=== PATIENT | female | born 1955 | race Native Hawaiian/Other Pacific Islander ===

== ENCOUNTER 2024-09-29 17:19 | Emergency (ER) | payer MEDICARE, MEDICAID, SELFPAY ==
[2024-09-29] VITALS (9 sets, daily range): BP systolic 176–222; BP diastolic 87–117; PULSE 99–111; RESP 16–24; TEMP 36.4; O2SAT 95–99; BMI 21.6
--- NOTE | 2024-09-29 17:35 | EKG_ITS ---
[address] [id number] [address] [place] [address] Test Date: 2024-09-29 Pat Name: Bj Zafar Department: [facility] Room: Gender: Female Surveillance Technician: NICOLETTE : 1954-11-03 Requested By: Order Number: [id number] Reading MD: Kermit Rausch Measurements Intervals [place] Rate: 112 P: -2 AR: 168 QRS: 1 QRSD: 76 T: 27 QT: 328 QTc: 447 Interpretive Statements Sinus tachycardia with premature atrial complexes Electronically Signed On 09-29-2024 19:01:43 PDT by Kermit Rausch
--- NOTE | 2024-09-29 17:35 | DI.RAD.S_ITS ---
PROCEDURE: XR CHEST 1V INDICATIONS: Chest Pain TECHNIQUE: One view of the chest was acquired. COMPARISON: None. FINDINGS: Surgical changes and devices: None. Lungs and pleura: Patchy bibasilar opacities. No dense consolidations. No pleural effusions or pneumothorax. Mediastinum: Mediastinal contours appear normal. Heart size is normal. Bones and chest wall: No suspicious bony lesions. Overlying soft tissues appear unremarkable. IMPRESSION: Mild patchy the bibasilar opacities without dense consolidations. Findings may represent atelectasis although early developing airspace disease may have a similar appearance. Dictated by: Jorge Allison M.D. on 09/29/2024 at 18:30 Approved by: Jorge Allison M.D. on 09/29/2024 at 18:33
[2024-09-29 18:06] LABS: INR 1.1 (0.9-1.3); Prothrombin Time 12.8 SECONDS (9.4-12.5)
[2024-09-29 18:09] LABS: PTT Partial Thromboplastin Tim 37 SECONDS (25.1-36.5)
[2024-09-29 18:11] LABS: Alanine Aminotransferase 15 IU/L (<35); Albumin 4.4 g/dL (3.5-5.0); Albumin Globulin Ratio 0.9 (1.0-2.8); Alkaline Phosphatase 114 U/L (38-126); Aspartate Aminotransferase 24 IU/L (14-36); BUN Creatinine Ratio 16.1 (6-22); Bilirubin Total 0.6 mg/dL (0.2-1.3); Blood Urea Nitrogen 22 mg/dL (7-17); Calcium 9.2 mg/dL (8.4-10.2); Carbon Dioxide 18 mmol/L (22-32); Chloride 104 mmol/L (98-107); Creatine Kinase 146 U/L (30-135); Estimated Glomerular Filt Rate 42 mL/min (>60); Globulin 4.7 g/dL (1.7-4.1); Glucose 128 mg/dL (70-99); HEMOLYSIS < 15 (0-50); Lipase 229 U/L (23-300); Magnesium 1.3 mg/dL (1.6-2.3); Potassium 4.1 mmol/L (3.4-5.1); Sodium 135 mmol/L (137-145); Total Protein 9.1 g/dL (6.3-8.2)
[2024-09-29 18:13] LABS: Add Manual Diff / Slide Review NO; Basophils Absolute Auto 100 /uL (0-100); Basophils Percent Auto 0.8 % (0-2); Eosinophils Absolute Auto 800 /uL (0-450); Eosinophils Percent Auto 6.4 % (2-4); Hematocrit 31.4 % (36-46); Hemoglobin 10.2 g/dL (12.0-16.0); Lymphocytes Absolute Auto 2000 /uL (1100-4500); Lymphocytes Percent Auto 16.2 % (25-40); Mean Corpuscular HGB Conc 32.5 % (30-36); Mean Corpuscular Hemoglobin 25.1 PG (26-34); Mean Corpuscular Volume 77.3 fL (80-100); Monocytes Absolute Auto 800 /uL (0-900); Monocytes Percent Auto 6.9 % (3-14); Neutrophils Absolute Auto 8400 /uL (1500-7000); Neutrophils Percent Auto 69.7 % (50-75); Platelet Count 437 X10^3/uL (150-400); Red Blood Cell Count 4.06 X10^6/uL (4.0-5.2); Red Cell Distribution Width 14.7 % (11.6-14.8); White Blood Cell Count 12.1 X10^3/uL (4.5-11.0)
[2024-09-29 18:23] LABS: NT-proBNP (BNP-Adult 18+) 188 pg/mL (<125); Troponin I < 0.012 ng/mL (0.01-0.034)
[2024-09-29 21:44] LABS: Troponin I < 0.012 ng/mL (0.01-0.034)
--- NOTE | 2024-09-29 21:59 | ED.GENADULT ---
HPI - General Adult General Chief complaint: Hypertension Stated complaint: back pain 4days Time Seen by Provider: 09/29/24 21:51 Source: patient, RN notes reviewed and old records reviewed Mode of arrival: Family Vehicle Limitations: no limitations History of Present Illness HPI narrative: 69-year-old history of diabetes presents with complaint of back pain that is more upper thoracic on the right little bit worse with movement. Patient denies any trauma or injuries. Started 2 days ago has been persistent. Patient notes maybe walking around makes it a little bit worse. No fevers, has a little bit of a cough, no cold or congestion symptoms. No shortness of breath. No anterior chest pain. No rash or skin changes noted. No midline pain no lower back pain. No numbness tingling or weakness down in extremities. Patient notes no new fecal incontinence. Occasionally has some urinary incontinence but states that is not new. Patient denies any abdominal pain. No difficulty with ambulation. She was tried acetaminophen at home with minimal improvement. Family indicates she takes medication for diabetes. She denies any prior surgeries. No known drug allergies. No tobacco, alcohol or recreational drugs. Patient speaks some [place] but grandson is also helping to interpret. Offered bessemer bottom maker line but they deferred. Related Data Previous Rx's ?Medication ?Instructions ?Recorded amoxicillin 875 mg-potassium 1 tab PO BID #20 tabs 09/29/24 clavulanate 125 mg tablet hydrocodone 5 mg-acetaminophen 325 1 tab PO Q6H PRN pain #10 tabs 09/29/24 mg tablet Allergies Allergy/AdvReac Type Severity Reaction Status Date / Time No Known Drug Allergies Allergy Verified 09/29/24 17:30 Review of Systems Review of Systems ROS Unobtainable: All systems reviewed & are unremarkable except as noted in HPI and below Exam Narrative Exam Narrative: GENERAL: Alert and oriented x three, female in mild distress HEENT: Head normocephalic, atraumatic, EOMI, pupils reactive, face symmetric, moist mucous membranes NECK: Supple, full range of motion CARDIOVASCULAR: Regular rate and rhythm without murmurs, rubs or gallops. RESPIRATORY: Breath sounds equal bilaterally, no wheezes rales or rhonchi. ABDOMEN: Soft, nontender. Normoactive bowel sounds all 4 quadrants. No guarding or rebound, rigidity, no mass : No CVA tenderness BACK: No cervical, thoracic or lumbar vertebral point tenderness. Patient has mildly decreased range of motion. Muscle strength is 5/5 in upper and lower extremities, 2+ pulses bilateral upper and lower extremities. Normal range of motion of bilateral upper and lower extremities. No swelling bilateral lower extremities. 2+ radial pulses bilaterally. EXTREMITIES: Normal range of motion, no clubbing or edema. Neurovascularly intact. NEUROLOGICAL: Cranial nerves II through XII grossly intact. Moving all extremities SKIN: Warm, dry, no petechiae, no rashes or lesions. Initial Vital Signs Initial Vital Signs: Vital Signs Temperature 97.6 F 09/29/24 17:29 Pulse Rate 109 H 09/29/24 17:29 Respiratory Rate 16 09/29/24 17:29 Blood Pressure 211/101 H 09/29/24 17:29 Pulse Oximetry 95 09/29/24 17:29 Oxygen Delivery Method Room Air 09/29/24 17:29 Course Orders Ordered: Discontinued Medications Hydrocodone Bitart/Acetaminophen (Hydrocodone/Acet 5/325 Tablet) 1 tab PO NOW ONE Stop: 09/29/24 22:16 Last Admin: 09/29/24 22:24 Dose: 1 tab Documented By: Amoxicillin/Clavulanate Potassium (Amoxicillin/Clav 875/125 Mg) 1 tab PO NOW ONE Stop: 09/29/24 22:16 Last Admin: 09/29/24 22:24 Dose: 1 tab Documented By: Aspirin (Aspirin 81 Mg Chew Tab) 324 mg PO NOW ONE Stop: 09/29/24 17:36 Last Admin: 09/29/24 21:51 Dose: Not Given Documented By: FORREST Vital Signs Vital signs: Vital Signs - 8 hr 09/29/24 17:29 09/29/24 20:52 09/29/24 20:52 Temperature 97.6 F Pulse Rate 109 H 111 H Respiratory Rate 16 Blood Pressure 211/101 H 222/117 H Pulse Oximetry 95 98 Oxygen Delivery Method Room Air 09/29/24 21:00 09/29/24 21:01 09/29/24 21:01 Temperature Pulse Rate 103 H 108 H Respiratory Rate 21 23 Blood Pressure 190/117 H Pulse Oximetry 99 99 Oxygen Delivery Method Medical Decision Making Lab Data 09/29/24 17:49 09/29/24 17:49 Labs: Lab Results 09/29/24 09/29/24 Range/Units 17:49 21:14 WBC 12.1 H (4.5-11.0) X10^3/uL RBC 4.06 (4.0-5.2) X10^6/uL Hgb 10.2 L (12.0-16.0) g/dL Hct 31.4 L (36-46) % MCV 77.3 L (80-100) fL MCH 25.1 L (26-34) PG MCHC 32.5 (30-36) % RDW 14.7 (11.6-14.8) % Plt Count 437 H (150-400) X10^3/uL Neut % (Auto) 69.7 (50-75) % Lymph % (Auto) 16.2 L (25-40) % [place] % (Auto) 6.9 (3-14) % Eos % (Auto) 6.4 H (2-4) % Baso % (Auto) 0.8 (0-2) % Neut # (Auto) 8400 H (1275-5885) /uL Lymph # (Auto) 2000 (1627-3358) /uL [place] # (Auto) 800 (0-900) /uL Eos # (Auto) 800 H (0-450) /uL Baso # (Auto) 100 (0-100) /uL PT 12.8 H (9.4-12.5) SECONDS INR 1.1 (0.9-1.3) APTT 37 H (25.1-36.5) SECONDS Sodium 135 L (137-145) mmol/L Potassium 4.1 (3.4-5.1) mmol/L Chloride 104 (98-107) mmol/L Carbon Dioxide 18 L (22-32) mmol/L BUN 22 H (7-17) mg/dL Creatinine 1.37 H (0.52-1.04) mg/dL Estimated GFR 42 L (>60) mL/min BUN/Creatinine Ratio 16.1 (6-22) Glucose 128 H (70-99) mg/dL Calcium 9.2 (8.4-10.2) mg/dL Magnesium 1.3 L (1.6-2.3) mg/dL Total Bilirubin 0.6 (0.2-1.3) mg/dL AST 24 (14-36) IU/L ALT 15 (<35) IU/L Alkaline Phosphatase 114 (38-126) U/L Total Creatine Kinase 146 H (30-135) U/L Troponin I < 0.012 < 0.012 (0.01-0.034) ng/mL NT-Pro-B Natriuret Pep 188 H (<125) pg/mL Total Protein 9.1 H (6.3-8.2) g/dL Albumin 4.4 (3.5-5.0) g/dL Globulin 4.7 H (1.7-4.1) g/dL Albumin/Globulin Ratio 0.9 L (1.0-2.8) Lipase 229 (23-300) U/L ECG Data Attestation: I personally reviewed and interpreted this ECG as follows: Interpretation: Sinus tachycardia premature atrial complexes rate of 112 QRS of 160 8q RS is 76 QTC of 328. MDM Narrative Medical decision making narrative: EKG sinus tach rate of 112 Labs show white count of 12 hemoglobin of 10 platelets of 437. INR 1.1 PTT is 37. Creatinine of 1.37, sodium of 135 potassium of 4.1 chloride of 104 CO2 18 BUN 22 glucose of 128 Mag is 1.3 troponins less than 0.012 with a repeat of less than 0.012 and a BNP of 188. Chest x-ray bowel patchy bibasilar opacities without dense consolidations could represent atelectasis versus early developing airspace disease with similar appearance. Patient's workup shows possible developing pneumonia, patient has not has a lot of symptoms but does have some right-sided chest discomfort more thoracic not anterior. Cardiac workup is negative pain has been persistent making my suspicion for cardiac source low. She was no acute EKG changes. It was worse somewhat with movement. She has tried Tylenol with minimal improvement. We will go ahead and cover with a an oral antibiotic, short course of pain medication with return precautions. Discharge Plan Departure Patient Disposition: Home Clinical Impression: Back pain, thoracic, Pneumonia Instructions: DI for Thoracic Back Pain Activity Restrictions/Additional Instructions: Your workup today shows a possible developing pneumonia, this may or may not be the source of your symptoms you do not appear to have a lot of infectious symptoms. Shingles is also a possibility if you noticed a rash with small red bumps or blisters over the area of pain follow up for evaluation. Take oral antibiotics until completed. You can continue to take acetaminophen up to a 1000 mg every 6 hours and/or ibuprofen up to 600 mg every 6 hours. If inadequate for pain you can take [place] 1 or 2 tablets every 6 hours instead of acetaminophen. This medication can make you sleepy do not drive, perform hazardous activities or make any major decisions while taking it. This medication will make you constipated please take a stool softener once to twice daily until stools are soft and regular. Prescription sent to [facility] in [place]. Return for fevers, rapidly worsening symptoms, new chest pain or shortness of breath, persistent vomiting, new numbness tingling or weakness or other new or concerning changes. Prescriptions: New amoxicillin-pot clavulanate 875-125 mg tablet 1 tab PO BID Qty: 20 0RF hydrocodone-acetaminophen 5-325 mg tablet 1 tab PO Q6H PRN (Reason: pain) Qty: 10 0RF Stand Alone Forms: Patient Portal/API
[2024-09-29] MEDS: HYDROCODONE/ACET 5/325 TABLET 1 TAB PO (22:24)
[2024-09-29] MEDS: AMOXICILLIN/CLAV 875/125 MG 1 TAB PO (22:24)
== END 2024-09-29 23:00 | disposition home or self-care (01) ==
PROVIDERS: Emergency Medicine; Emergency Provider Emergency Medicine
DX: M54.6 Pain in thoracic spine (principal); J18.9 Pneumonia, unspecified organism; I10 Essential (primary) hypertension
CPT/HCPCS: 36415; 71045; 80053; 82550; 83690; 83735; 83880; 84484; 85025; 85610; 85730; 93005; 99284

== ENCOUNTER 2024-10-03 12:58 | Emergency (ER) | payer MEDICARE, MEDICAID, SELFPAY ==
[2024-10-03] VITALS (15 sets, daily range): BP systolic 135–182; BP diastolic 63–96; PULSE 86–109; RESP 18; TEMP 36.9; O2SAT 97–100; BMI 31.8
--- NOTE | 2024-10-03 14:32 | DI.RAD.S_ITS ---
PROCEDURE: XR KNEE RT 3V INDICATIONS: knee swelling, pain TECHNIQUE: 3 views of the knee were acquired. COMPARISON: None. FINDINGS: Bones: No fractures or dislocations. No suspicious bony lesions. Tricompartmental joint space narrowing with associated osteophytosis. Soft tissues: Massive joint effusion. No suspicious soft tissue calcifications. IMPRESSION: No acute bony abnormality. Large joint effusion. Internal derangement not excluded. Dictated by: Willem Mojica M.D. on 10/03/2024 at 14:49 Approved by: Willem Mojica M.D. on 10/03/2024 at 14:49
[2024-10-03 14:55] LABS: Add Manual Diff / Slide Review NO; Basophils Absolute Auto 200 /uL (0-100); Basophils Percent Auto 1.4 % (0-2); Eosinophils Absolute Auto 800 /uL (0-450); Eosinophils Percent Auto 7.7 % (2-4); Hematocrit 28.5 % (36-46); Hemoglobin 9.6 g/dL (12.0-16.0); Lymphocytes Absolute Auto 1200 /uL (1100-4500); Lymphocytes Percent Auto 11.2 % (25-40); Mean Corpuscular HGB Conc 33.7 % (30-36); Mean Corpuscular Hemoglobin 25.5 PG (26-34); Mean Corpuscular Volume 75.8 fL (80-100); Monocytes Absolute Auto 700 /uL (0-900); Monocytes Percent Auto 6.4 % (3-14); Neutrophils Absolute Auto 8100 /uL (1500-7000); Neutrophils Percent Auto 73.3 % (50-75); Platelet Count 512 X10^3/uL (150-400); Red Blood Cell Count 3.76 X10^6/uL (4.0-5.2); Red Cell Distribution Width 15.2 % (11.6-14.8)
[2024-10-03] MEDS: MORPHINE 4 MG/ML INJ IV (14:56)
--- NOTE | 2024-10-03 15:01 | ED.EXTPRO ---
HPI - Extremity Problem <Yoni Akers PA-C - Last Filed: 10/03/24 16:16> General Chief complaint: Extremity Problem,Nontraumatic Stated complaint: Swollen right knee x 3days Time Seen by Provider: 10/03/24 13:14 Source: patient Mode of arrival: Ambulatory History of Present Illness HPI Narrative: 69-year-old female with past medical history diabetes, hypertension, gout presents to the ED with 3 days of right-sided knee pain and swelling. Patient describes the symptoms as spontaneous onset, no recent trauma or injury. Patient endorses having been diagnosed with gout about 2 years ago. Patient states that the pain is severe, patient states that she is not able to bend the knee. Endorses swelling, pain, warmth of the right knee. No fever, chills, chest pain, shortness of breath, nausea, vomiting, lightheadedness, dizziness, syncope. Related Data Home Medications ?Medication ?Instructions ?Recorded ?Confirmed amoxicillin 875 mg-potassium 1 tab PO BID 10/03/24 10/03/24 clavulanate 125 mg tablet hydrocodone 5 mg-acetaminophen 325 1 tab PO Q4H PRN pain 10/03/24 10/03/24 mg tablet metformin 500 mg tablet 500 mg PO BID 10/03/24 10/03/24 Previous Rx's ?Medication ?Instructions ?Recorded indomethacin 50 mg capsule 50 mg PO TID #20 caps 10/03/24 omeprazole 20 mg capsule,delayed 20 mg PO DAILY upper abdominal 10/03/24 release pain 30 days #30 caps prednisone 20 mg tablet 40 mg (2 x 20 mg) PO DAILY 5 days 10/03/24 #10 tabs Allergies Allergy/AdvReac Type Severity Reaction Status Date / Time No Known Drug Allergies Allergy Verified 10/03/24 13:03 Review of Systems <Yoni Akers PA-C - Last Filed: 10/03/24 16:16> Constitutional Constitutional: Denies chills, Denies fatigue, Denies fever(s), Denies frequent falls, Denies lethargy and Denies weakness Eyes Eyes: Denies change in vision, Denies eye discharge, Denies irritation and Denies loss of vision ENT Ears, Nose, Mouth, and Throat: Denies change in voice, Denies dizziness, Denies neck pain, Denies sore throat and Denies throat swelling Cardiovascular Cardiovascular: Denies chest pain, Denies irregular heart rhythm, Denies lightheadedness, Denies palpitations, Denies dyspnea, Denies dyspnea on exertion and Denies orthopnea Respiratory Respiratory: Denies cough, Denies dyspnea, Denies dyspnea on exertion and Denies wheezing Gastrointestinal Gastrointestinal: Denies abdominal pain, Denies change in bowel habits, Denies diarrhea, Denies nausea and Denies vomiting Musculoskeletal Musculoskeletal: Denies neck pain and Denies numbness Comments: Right knee pain, swelling, warmth, stiffness. Unable to bend knee Integumentary/Breasts Skin/Breast: Denies pruritus, Denies erythema, Denies rash and Denies wounds Neurologic Neurologic: Denies behavioral changes, Denies confusion, Denies dizziness, Denies frequent falls, Denies loss of vision, Denies numbness and Denies weakness Psychiatric Psychiatric: Denies anxiety, Denies behavioral changes, Denies confusion, Denies depression, Denies homicidal ideation and Denies suicidal ideation Endocrine Endocrine: Denies fatigue, Denies flushing and Denies palpitations Hematologic/Lymphatic Hematologic/Lymphatic: Denies easy bruising Allergic/Immunologic Allergic/Immunologic: Denies urticaria, Denies throat swelling and Denies wheezing Patient History <Yoni Akers PA-C - Last Filed: 10/03/24 16:16> Social History Smoking Status: Never smoker Smoking Status: Never smoker Exam <Yoni Akers PA-C - Last Filed: 10/03/24 16:16> Narrative Exam Narrative: Const General:?cooperative, healthy appearing and comfortable [facility] Head:?normal to inspection Ears:?hearing grossly normal bilaterally Nose:?external nose normal Face and sinus:?normal facial exam and sinuses nontender Mouth:?oral mucosae normal Throat:?posterior oropharynx normal Eyes General:?appearance normal, both eyes and all related structures Neck Neck:?normal visual inspection and no lymphadenopathy noted Resp Effort & Inspection:?normal respiratory effort Auscultation:?clear to auscultation bilaterally Cardio Rate:?regular rate Rhythm:?regular rhythm Musculoskeletal The right knee is significantly swollen compared to the left, warmth to touch. The knee is also exquisitely tender to palpation. Severely limited range of motion, both active and passive. Skin is intact. No bruising noted. Neurovascularly intact. Neuro General:?patient alert, patient awake and patient oriented x3 Initial Vital Signs Initial Vital Signs: Vital Signs Temperature 98.5 F 10/03/24 13:02 Pulse Rate 99 H 10/03/24 13:02 Respiratory Rate 18 10/03/24 13:02 Blood Pressure 178/92 H 10/03/24 13:02 Pulse Oximetry 100 10/03/24 13:02 Oxygen Delivery Method Room Air 10/03/24 13:02 <Lance Mandel MD - Last Filed: 10/04/24 07:52> Initial Vital Signs Initial Vital Signs: Vital Signs Temperature 98.5 F 10/03/24 13:02 Pulse Rate 99 H 10/03/24 13:02 Respiratory Rate 18 10/03/24 13:02 Blood Pressure 178/92 H 10/03/24 13:02 Pulse Oximetry 100 10/03/24 13:02 Oxygen Delivery Method Room Air 10/03/24 13:02 <Vito Villa MD - Last Filed: 10/04/24 03:54> Initial Vital Signs Initial Vital Signs: Vital Signs Temperature 98.5 F 10/03/24 13:02 Pulse Rate 99 H 10/03/24 13:02 Respiratory Rate 18 10/03/24 13:02 Blood Pressure 178/92 H 10/03/24 13:02 Pulse Oximetry 100 10/03/24 13:02 Oxygen Delivery Method Room Air 10/03/24 13:02 Procedures <Lance Mandel MD - Last Filed: 10/04/24 07:52> Joint Aspiration Joint Asp./Inject. 1: Time of procedure: 18:30 Time Out Performed: Yes Side of body: right Joint Aspirated: knee Skin Prep: sterile prep and drape Local Anesthetic: lidocaine 2% Amount of anesthesia used (mL): 3 Needle Size Used: 18G Fluid Obtained: viscous Total fluid obtained (mL): 30 Patient Tolerated Procedure: Well Complications: none Additional Comments: Right knee superolateral approach. Course <Yoni Akers PA-C - Last Filed: 10/03/24 16:16> Orders Ordered: Discontinued Medications Indomethacin (Indomethacin 25 Mg Capsule) 25 mg PO NOW ONE Stop: 10/03/24 21:42 Last Admin: 10/03/24 22:03 Dose: 25 mg Documented By: C Morphine Sulfate (Morphine 4 Mg/Ml Inj) 4 mg IV NOW ONE Stop: 10/03/24 14:31 Last Admin: 10/03/24 14:56 Dose: 4 mg Documented By: FORREST Prednisone (Prednisone 20 Mg Tablet) 60 mg PO NOW ONE Stop: 10/03/24 21:42 Last Admin: 10/03/24 22:02 Dose: 60 mg Documented By: DONNA Vital Signs Vital signs: Vital Signs - 8 hr 10/03/24 20:00 10/03/24 20:00 10/03/24 20:30 Pulse Rate 86 99 H Blood Pressure 151/72 H Pulse Oximetry 99 97 Oxygen Delivery Method 10/03/24 20:44 10/03/24 20:44 10/03/24 21:00 Pulse Rate 93 H Blood Pressure 149/70 H 137/63 Pulse Oximetry 98 Oxygen Delivery Method 10/03/24 21:00 10/03/24 21:30 10/03/24 21:30 Pulse Rate 94 H 105 H Blood Pressure 171/96 H Pulse Oximetry 97 99 Oxygen Delivery Method 10/03/24 22:00 10/03/24 22:00 Pulse Rate 97 H Blood Pressure 145/83 H Pulse Oximetry 97 Oxygen Delivery Method Room Air <Lance Mandel MD - Last Filed: 10/04/24 07:52> Orders Ordered: Discontinued Medications Indomethacin (Indomethacin 25 Mg Capsule) 25 mg PO NOW ONE Stop: 10/03/24 21:42 Last Admin: 10/03/24 22:03 Dose: 25 mg Documented By: DONNA Morphine Sulfate (Morphine 4 Mg/Ml Inj) 4 mg IV NOW ONE Stop: 10/03/24 14:31 Last Admin: 10/03/24 14:56 Dose: 4 mg Documented By: FORREST Prednisone (Prednisone 20 Mg Tablet) 60 mg PO NOW ONE Stop: 10/03/24 21:42 Last Admin: 10/03/24 22:02 Dose: 60 mg Documented By: DONNA Vital Signs Vital signs: Vital Signs - 8 hr 10/03/24 20:00 10/03/24 20:00 10/03/24 20:30 Pulse Rate 86 99 H Blood Pressure 151/72 H Pulse Oximetry 99 97 Oxygen Delivery Method 10/03/24 20:44 10/03/24 20:44 10/03/24 21:00 Pulse Rate 93 H Blood Pressure 149/70 H 137/63 Pulse Oximetry 98 Oxygen Delivery Method 10/03/24 21:00 10/03/24 21:30 10/03/24 21:30 Pulse Rate 94 H 105 H Blood Pressure 171/96 H Pulse Oximetry 97 99 Oxygen Delivery Method 10/03/24 22:00 10/03/24 22:00 Pulse Rate 97 H Blood Pressure 145/83 H Pulse Oximetry 97 Oxygen Delivery Method Room Air <Vito Villa MD - Last Filed: 10/04/24 03:54> Orders Ordered: Discontinued Medications Indomethacin (Indomethacin 25 Mg Capsule) 25 mg PO NOW ONE Stop: 10/03/24 21:42 Last Admin: 10/03/24 22:03 Dose: 25 mg Documented By: DONNA Morphine Sulfate (Morphine 4 Mg/Ml Inj) 4 mg IV NOW ONE Stop: 10/03/24 14:31 Last Admin: 10/03/24 14:56 Dose: 4 mg Documented By: FORREST Prednisone (Prednisone 20 Mg Tablet) 60 mg PO NOW ONE Stop: 10/03/24 21:42 Last Admin: 10/03/24 22:02 Dose: 60 mg Documented By: DONNA Vital Signs Vital signs: Vital Signs - 8 hr 10/03/24 20:00 10/03/24 20:00 10/03/24 20:30 Pulse Rate 86 99 H Blood Pressure 151/72 H Pulse Oximetry 99 97 Oxygen Delivery Method 10/03/24 20:44 10/03/24 20:44 10/03/24 21:00 Pulse Rate 93 H Blood Pressure 149/70 H 137/63 Pulse Oximetry 98 Oxygen Delivery Method 10/03/24 21:00 10/03/24 21:30 10/03/24 21:30 Pulse Rate 94 H 105 H Blood Pressure 171/96 H Pulse Oximetry 97 99 Oxygen Delivery Method 10/03/24 22:00 10/03/24 22:00 Pulse Rate 97 H Blood Pressure 145/83 H Pulse Oximetry 97 Oxygen Delivery Method Room Air MDM - Extremity (Nontraumatic) <Yoni Akers PA-C - Last Filed: 10/03/24 16:16> Lab Data 10/03/24 14:43 10/03/24 14:43 Labs: Lab Results 10/03/24 10/03/24 Range/Units 14:43 18:57 WBC 11.0 (4.5-11.0) X10^3/uL RBC 3.76 L (4.0-5.2) X10^6/uL Hgb 9.6 L (12.0-16.0) g/dL Hct 28.5 L (36-46) % MCV 75.8 L (80-100) fL MCH 25.5 L (26-34) PG MCHC 33.7 (30-36) % RDW 15.2 H (11.6-14.8) % Plt Count 512 H (150-400) X10^3/uL Neut % (Auto) 73.3 (50-75) % Lymph % (Auto) 11.2 L (25-40) % [place] % (Auto) 6.4 (3-14) % Eos % (Auto) 7.7 H (2-4) % Baso % (Auto) 1.4 (0-2) % Neut # (Auto) 8100 H (9411-6551) /uL Lymph # (Auto) 1200 (1032-4766) /uL [place] # (Auto) 700 (0-900) /uL Eos # (Auto) 800 H (0-450) /uL Baso # (Auto) 200 H (0-100) /uL ESR 101 H (0-20) MM/HR Sodium 136 L (137-145) mmol/L Potassium 4.3 (3.4-5.1) mmol/L Chloride 103 (98-107) mmol/L Carbon Dioxide 19 L (22-32) mmol/L BUN 36 H (7-17) mg/dL Creatinine 1.60 H (0.52-1.04) mg/dL Estimated GFR 35 L (>60) mL/min BUN/Creatinine Ratio 22.5 H (6-22) Glucose 131 H (70-99) mg/dL Hemoglobin A1c 6.1 H (4.0-6.0) % Lactate 1.6 (0.7-2.1) mmol/L Calcium 9.4 (8.4-10.2) mg/dL Total Bilirubin 0.7 (0.2-1.3) mg/dL AST 37 H (14-36) IU/L ALT 26 (<35) IU/L Alkaline Phosphatase 262 H (38-126) U/L C-Reactive Protein 21.0 H (<1.0) mg/dL Total Protein 8.9 H (6.3-8.2) g/dL Albumin 4.2 (3.5-5.0) g/dL Globulin 4.7 H (1.7-4.1) g/dL Albumin/Globulin Ratio 0.9 L (1.0-2.8) Procalcitonin 0.240 (<0.5) ng/mL Fluid Color Yellow Fluid Appearance Cloud[place] 54[address] /uL Fld Tot Nucleated Cell 55934 /uL Fluid Neutrophils % 90 % Fluid Lymphocytes % 8 % Fluid Meso/Macro/[place] % 1 % Fluid Crystals Monosodium urate msu H (NONE) Body Fluid Clot No clots present MDM Narrative Medical decision making narrative: 69-year-old female with past medical history diabetes, hypertension, gout presents to the ED with 3 days of right-sided knee pain and swelling. Concern for septic knee versus gout versus fracture/dislocation versus bursitis versus septic bursitis versus musculoskeletal sprain/strain versus other. On physical exam, patient is right knee is very stiff, swollen, warm with severely limited range of motion, both active and passive. This is concerning for septic arthritis versus septic bursitis versus gout. Will obtain labs, ESR, CRP, procalcitonin, x-rays. Patient will likely need arthrocentesis. Patient given morphine for pain relief. Will reassess. WBC 11. ESR elevated to 101. CRP elevated to 21. Knee x-ray shows a massive joint effusion. Discussed findings with Dr. Ramsey Mandel and need for a knee tap. Patient's care has been transferred to Dr. Michel at this time. Medical records reviewed: Yes <Lance Mandel MD - Last Filed: 10/04/24 07:52> Lab Data Labs: Lab Results 10/03/24 10/03/24 Range/Units 14:43 18:57 WBC 11.0 (4.5-11.0) X10^3/uL RBC 3.76 L (4.0-5.2) X10^6/uL Hgb 9.6 L (12.0-16.0) g/dL Hct 28.5 L (36-46) % MCV 75.8 L (80-100) fL MCH 25.5 L (26-34) PG MCHC 33.7 (30-36) % RDW 15.2 H (11.6-14.8) % Plt Count 512 H (150-400) X10^3/uL Neut % (Auto) 73.3 (50-75) % Lymph % (Auto) 11.2 L (25-40) % [place] % (Auto) 6.4 (3-14) % Eos % (Auto) 7.7 H (2-4) % Baso % (Auto) 1.4 (0-2) % Neut # (Auto) 8100 H (7496-3736) /uL Lymph # (Auto) 1200 (6772-9852) /uL [place] # (Auto) 700 (0-900) /uL Eos # (Auto) 800 H (0-450) /uL Baso # (Auto) 200 H (0-100) /uL ESR 101 H (0-20) MM/HR Sodium 136 L (137-145) mmol/L Potassium 4.3 (3.4-5.1) mmol/L Chloride 103 (98-107) mmol/L Carbon Dioxide 19 L (22-32) mmol/L BUN 36 H (7-17) mg/dL Creatinine 1.60 H (0.52-1.04) mg/dL Estimated GFR 35 L (>60) mL/min BUN/Creatinine Ratio 22.5 H (6-22) Glucose 131 H (70-99) mg/dL Hemoglobin A1c 6.1 H (4.0-6.0) % Lactate 1.6 (0.7-2.1) mmol/L Calcium 9.4 (8.4-10.2) mg/dL Total Bilirubin 0.7 (0.2-1.3) mg/dL AST 37 H (14-36) IU/L ALT 26 (<35) IU/L Alkaline Phosphatase 262 H (38-126) U/L C-Reactive Protein 21.0 H (<1.0) mg/dL Total Protein 8.9 H (6.3-8.2) g/dL Albumin 4.2 (3.5-5.0) g/dL Globulin 4.7 H (1.7-4.1) g/dL Albumin/Globulin Ratio 0.9 L (1.0-2.8) Procalcitonin 0.240 (<0.5) ng/mL Fluid Color Yellow Fluid Appearance Cloud[place]uid [place] 40617 /uL Fld Tot Nucleated Cell 77681 /uL Fluid Neutrophils % 90 % Fluid Lymphocytes % 8 % Fluid Meso/Macro/[place] % 1 % Fluid Crystals Monosodium urate msu H (NONE) Body Fluid Clot No clots present MDM Narrative Medical decision making narrative: 69-year-old female with past medical history diabetes, hypertension, gout presents to the ED with 3 days of right-sided knee pain and swelling. Concern for septic knee versus gout versus fracture/dislocation versus bursitis versus septic bursitis versus musculoskeletal sprain/strain versus other. On physical exam, patient is right knee is very stiff, swollen, warm with severely limited range of motion, both active and passive. This is concerning for septic arthritis versus septic bursitis versus gout. Will obtain labs, ESR, CRP, procalcitonin, x-rays. Patient will likely need arthrocentesis. Patient given morphine for pain relief. Will reassess. WBC 11. ESR elevated to 101. CRP elevated to 21. Knee x-ray shows a massive joint effusion. Discussed findings with Dr. Ramsey Mandel and need for a knee tap. Patient's care has been transferred to Dr. Michel at this time. Medical records reviewed: Yes Patient is sent over from fast track, I spoke with physician dental assistant instructor Yoni, patient will need arthrocentesis of the right knee. Suspicion for a septic knee. 6:30 p.m.. Spoke with patient and son. She gives verbal consent for arthrocentesis. I described to her risks and benefits and procedure. She does understand and agrees. Needs to be done to rule out infected knee. 7:[address] Mandel: Sign out to Dr. Villa. Orthopedics will need to be contacted after joint fluid results. <Vito Villa MD - Last Filed: 10/04/24 03:54> Lab Data Labs: Lab Results 10/03/24 10/03/24 Range/Units 14:43 18:57 WBC 11.0 (4.5-11.0) X10^3/uL RBC 3.76 L (4.0-5.2) X10^6/uL Hgb 9.6 L (12.0-16.0) g/dL Hct 28.5 L (36-46) % MCV 75.8 L (80-100) fL MCH 25.5 L (26-34) PG MCHC 33.7 (30-36) % RDW 15.2 H (11.6-14.8) % Plt Count 512 H (150-400) X10^3/uL Neut % (Auto) 73.3 (50-75) % Lymph % (Auto) 11.2 L (25-40) % [place] % (Auto) 6.4 (3-14) % Eos % (Auto) 7.7 H (2-4) % Baso % (Auto) 1.4 (0-2) % Neut # (Auto) 8100 H (6432-2898) /uL Lymph # (Auto) 1200 (0515-3463) /uL [place] # (Auto) 700 (0-900) /uL Eos # (Auto) 800 H (0-450) /uL Baso # (Auto) 200 H (0-100) /uL ESR 101 H (0-20) MM/HR Sodium 136 L (137-145) mmol/L Potassium 4.3 (3.4-5.1) mmol/L Chloride 103 (98-107) mmol/L Carbon Dioxide 19 L (22-32) mmol/L BUN 36 H (7-17) mg/dL Creatinine 1.60 H (0.52-1.04) mg/dL Estimated GFR 35 L (>60) mL/min BUN/Creatinine Ratio 22.5 H (6-22) Glucose 131 H (70-99) mg/dL Hemoglobin A1c 6.1 H (4.0-6.0) % Lactate 1.6 (0.7-2.1) mmol/L Calcium 9.4 (8.4-10.2) mg/dL Total Bilirubin 0.7 (0.2-1.3) mg/dL AST 37 H (14-36) IU/L ALT 26 (<35) IU/L Alkaline Phosphatase 262 H (38-126) U/L C-Reactive Protein 21.0 H (<1.0) mg/dL Total Protein 8.9 H (6.3-8.2) g/dL Albumin 4.2 (3.5-5.0) g/dL Globulin 4.7 H (1.7-4.1) g/dL Albumin/Globulin Ratio 0.9 L (1.0-2.8) Procalcitonin 0.240 (<0.5) ng/mL Fluid Color Yellow Fluid Appearance [place] 43270 /uL Fld Tot Nucleated Cell 91395 /uL Fluid Neutrophils % 90 % Fluid Lymphocytes % 8 % Fluid Meso/Macro/[place] % 1 % Fluid Crystals Monosodium urate msu H (NONE) Body Fluid Clot No clots present Imaging Data Extremity x-ray #1: Radiologist's Impression: [address] [address] XRay Report Signed Patient: Andrade Lorenzo MR#: [id number] : 1955 Acct:[id number] Age/Sex: 69 / F Date of Service: 10/03/24 Loc: ED Accession Number: [id number] Procedure: XR knee RT 3V Ordering Provider: Yoni Akers PA-C PROCEDURE: XR KNEE RT 3V INDICATIONS: knee swelling, pain TECHNIQUE: 3 views of the knee were acquired. COMPARISON: None. FINDINGS: Bones: No fractures or dislocations. No suspicious bony lesions. Tricompartmental joint space narrowing with associated osteophytosis. Soft tissues: Massive joint effusion. No suspicious soft tissue calcifications. IMPRESSION: No acute bony abnormality. Large joint effusion. Internal derangement not excluded. Dictated by: Willem Mojica M.D. on 10/03/2024 at 14:49 Approved by: Willem Mojica M.D. on 10/03/2024 at 14:49 [facility] Narrative Medical decision making narrative: 69-year-old female with past medical history diabetes, hypertension, gout presents to the ED with 3 days of right-sided knee pain and swelling. Concern for septic knee versus gout versus fracture/dislocation versus bursitis versus septic bursitis versus musculoskeletal sprain/strain versus other. On physical exam, patient is right knee is very stiff, swollen, warm with severely limited range of motion, both active and passive. This is concerning for septic arthritis versus septic bursitis versus gout. Will obtain labs, ESR, CRP, procalcitonin, x-rays. Patient will likely need arthrocentesis. Patient given morphine for pain relief. Will reassess. WBC 11. ESR elevated to 101. CRP elevated to 21. Knee x-ray shows a massive joint effusion. Discussed findings with Dr. Ramsey Mandel and need for a knee tap. Patient's care has been transferred to Dr. Michel at this time. Medical records reviewed: Yes Patient is sent over from fast track, I spoke with physician dental assistant instructor Yoni, patient will need arthrocentesis of the right knee. Suspicion for a septic knee. 6:30 p.m.. Spoke with patient and son. She gives verbal consent for arthrocentesis. I described to her risks and benefits and procedure. She does understand and agrees. Needs to be done to rule out infected knee. 7:[address] Mandel: Sign out to Dr. Villa. Orthopedics will need to be contacted after joint fluid results. 10/03/24, 1914, [place]. Sign-out from Dr. Mandel. Joint fluid aspirate lab results pending. 69-year-old female with history of diabetes and gout, has nontraumatic right-sided knee pain and swelling for the last 3 days. Increased inflammatory markers. Joint aspiration serosanguinous fluid reported, sent to lab for studies. Await results and likely consultation with Orthopedic surgery. Assumed care. Joint fluid results. Urate crystals are present. G stain negative for organisms, many WBCs noted. Cell count [place] 41972 white blood cells, 90% [place] [id number]. Looks inflammatory secondary to gouty arthritis. We will consult with Orthopedic surgery. 2144, case discussed with Orthopedic surgery Dr. Mcpherson, agrees lab results consistent with gouty arthritis of the right knee. No superinfection at this time. No history of kidney disease or ulcers, no blood thinner medications. We will discharge patient on Indomethacin and Prednisone steroid pulse, 1st oral doses given now, prescription sent to her pharmacy.. Follow up with PCP advised. Discharge Plan Departure Patient Disposition: Home Clinical Impression: Knee effusion, right, Gouty arthritis Activity Restrictions/Additional Instructions: Right knee pain with effusion, history of gout. No chronic medications for gout listed. No fever on triage. White blood cell count not elevated from serum studies. Inflammatory markers elevated. Joint tap fluid removed looked serosanguineous in nature, not obviously looking like pus. Studies of the joint fluid consistent with gout, crystals were present consistent with gout, and no obvious organisms or bacteria, white cell count from the joint fluid not super high, no concerns for bacterial infection at this time. Case discussed with local orthopedic surgeon. Treat for gouty arthritis for now. Indomethacin dose given in the emergency department, prescription sent for further course to your pharmacy. Steroid dose given in the emergency department by mouth, further steroids by mouth prescription sent to your pharmacy. Recheck symptoms with your regular doctor this week. Return earlier to this/nearest emergency department for any change worsening symptoms or concerns prior. Prescription also sent for omeprazole to help protect his stomach, as steroids and indomethacin can bother of the stomach. Prescriptions: New prednisone 20 mg tablet 40 mg PO DAILY 5 Days Qty: 10 0RF indomethacin 50 mg capsule 50 mg PO TID Qty: 20 0RF Rx Instructions: administer with food or milk omeprazole 20 mg capsule,delayed release(DR/EC) 20 mg PO DAILY 30 Days Qty: 30 0RF No Action metformin 500 mg tablet 500 mg PO BID hydrocodone-acetaminophen 5-325 mg tablet 1 tab PO Q4H PRN (Reason: pain) amoxicillin-pot clavulanate 875-125 mg tablet 1 tab PO BID Stand Alone Forms: Patient Portal/API <Lance Mandel MD - Last Filed: 10/04/24 07:52> Office Procedure Location: Right knee Laterality: right Treatment Method: Arthrocentesis Anesthetic: Lidocaine 1% Patient Tolerated Procedure: Well Joint Inj/Aspiration/Arthrocentesis Notes: Sterile technique used. Hibiclens used to clean the skin. 30 gauge needle used for infiltration of 3 mL of 1% lidocaine without epinephrine. Anesthesia achieved. 18 gauge needle used for aspiration of 30 mL of serous fluid without complication. Band-Aid placed over after aspiration. Patient tolerated well. Wiggles toes and light touch intact to leg and toes.
[2024-10-03 15:09] LABS: Lactate (Lactic Acid) 1.6 mmol/L (0.7-2.1)
[2024-10-03 15:13] LABS: Alanine Aminotransferase 26 IU/L (<35); Albumin 4.2 g/dL (3.5-5.0); Albumin Globulin Ratio 0.9 (1.0-2.8); Alkaline Phosphatase 262 U/L (38-126); Aspartate Aminotransferase 37 IU/L (14-36); BUN Creatinine Ratio 22.5 (6-22); Bilirubin Total 0.7 mg/dL (0.2-1.3); Blood Urea Nitrogen 36 mg/dL (7-17); Calcium 9.4 mg/dL (8.4-10.2); Carbon Dioxide 19 mmol/L (22-32); Chloride 103 mmol/L (98-107); Estimated Glomerular Filt Rate 35 mL/min (>60); Globulin 4.7 g/dL (1.7-4.1); Glucose 131 mg/dL (70-99); HEMOLYSIS < 15 (0-50); Potassium 4.3 mmol/L (3.4-5.1); Sodium 136 mmol/L (137-145); Total Protein 8.9 g/dL (6.3-8.2)
[2024-10-03 15:23] LABS: Hemoglobin A1C% w Est Avg Glu 6.1 % (4.0-6.0)
[2024-10-03 15:27] LABS: Erythrocyte Sedimentation Rate 101 MM/HR (0-20)
--- NOTE | 2024-10-03 19:06 | PC.NURSE ---
Pt's right knee drained by Dr. Mandel. Sample walked down to lab by SHARON Caballero
[2024-10-03 19:39] LABS: Crystals Body Fluid - IN-HOUSE Monosodium Urate MSU
[2024-10-03 20:10] LABS: Body Fluid Appearance CLOUDY; Body Fluid Clotted? NO CLOTS PRESENT; Body Fluid Color YELLOW; Body Fluid Red Blood Cells 10156 /uL; Body Fluid Tot Nucleated Cells 20324 /uL
[2024-10-03 20:14] LABS: Lymphocytes Body Fluid 8 %; MESO/MACRO/MONO Body Fluid 1 %; Neutrophils Body Fluid 90 %
[2024-10-03] MEDS: predniSONE 20 MG TABLET 60 MG PO (22:02)
[2024-10-03] MEDS: INDOMETHACIN 25 MG CAPSULE PO (22:03)
== END 2024-10-03 22:09 | disposition home or self-care (01) ==
PROVIDERS: Emergency Medicine; Student in an Organized Health Care Education/Training Program; Emergency Provider Emergency Medicine
DX: M25.461 Effusion, right knee (principal); M10.9 Gout, unspecified
CPT/HCPCS: 20610; 73562; 80053; 83036; 83605; 84145; 85025; 85651; 86140; 87040; 87070; 87075; 87205; 89051; 89060; 96374; 99284; J2270

== ENCOUNTER → 2024-10-20 12:48 | Outpatient (CLI) | payer MEDICARE, MEDICAID, SELFPAY ==
[2024-10-20 13:21] LABS: Add Manual Diff / Slide Review NO; Basophils Absolute Auto 100 /uL (0-100); Basophils Percent Auto 1.1 % (0-2); Eosinophils Absolute Auto 900 /uL (0-450); Eosinophils Percent Auto 13.4 % (2-4); Hematocrit 30.6 % (36-46); Hemoglobin 10.1 g/dL (12.0-16.0); Lymphocytes Absolute Auto 1500 /uL (1100-4500); Lymphocytes Percent Auto 21.1 % (25-40); Mean Corpuscular HGB Conc 33.1 % (30-36); Mean Corpuscular Hemoglobin 25.3 PG (26-34); Mean Corpuscular Volume 76.3 fL (80-100); Monocytes Absolute Auto 300 /uL (0-900); Neutrophils Absolute Auto 4200 /uL (1500-7000); Neutrophils Percent Auto 59.4 % (50-75); Platelet Count 508 X10^3/uL (150-400); Red Blood Cell Count 4.01 X10^6/uL (4.0-5.2); Red Cell Distribution Width 15.3 % (11.6-14.8)
[2024-10-20 13:50] LABS: Alanine Aminotransferase 9 IU/L (<35); Albumin 4.1 g/dL (3.5-5.0); Albumin Globulin Ratio 1.1 (1.0-2.8); Alkaline Phosphatase 98 U/L (38-126); Aspartate Aminotransferase 16 IU/L (14-36); BUN Creatinine Ratio 17.7 (6-22); Bilirubin Total 0.6 mg/dL (0.2-1.3); Blood Urea Nitrogen 28 mg/dL (7-17); Calcium 9.7 mg/dL (8.4-10.2); Carbon Dioxide 20 mmol/L (22-32); Chloride 104 mmol/L (98-107); Cholesterol 241 mg/dL (140-199); Estimated Glomerular Filt Rate 36 mL/min (>60); Globulin 3.7 g/dL (1.7-4.1); Glucose 131 mg/dL (70-99); HDL Cholesterol 44 mg/dL (40-60); HEMOLYSIS < 15 (0-50); LDL Cholesterol Calculated 150 mg/dL (<100); Potassium 4.4 mmol/L (3.4-5.1); Sodium 138 mmol/L (137-145); Total Protein 7.8 g/dL (6.3-8.2); Triglycerides 233 mg/dL (35-150)
[2024-10-20 14:09] LABS: Uric Acid 13.3 mg/dL (2.5-6.2)
[2024-10-20 16:54] LABS: Ferritin 144 ng/mL (11-264)
== END ==
LOC: LAB 12:51
PROVIDERS: PCP Family Medicine; Referring Provider Family Medicine; Visit Provider Family Medicine
DX: E11.9 Type 2 diabetes mellitus without complications (principal); I10 Essential (primary) hypertension; M10.9 Gout, unspecified; D50.9 Iron deficiency anemia, unspecified; N18.9 Chronic kidney disease, unspecified
CPT/HCPCS: 36415; 80053; 80061; 82728; 84550; 85025

== ENCOUNTER → 2024-10-21 11:06 | Outpatient (CLI) | payer MEDICARE, MEDICAID, SELFPAY ==
[2024-10-21 12:17] LABS: Creatinine Urine Random 78.19 mg/dL
[2024-10-21 12:26] LABS: Microalbumin Urine Random < 0.6 mg/dL (0-1.6)
== END ==
PROVIDERS: PCP Family Medicine; Referring Provider Family Medicine; Visit Provider Family Medicine
DX: E11.22 Type 2 diabetes mellitus with diabetic chronic kidney disease (principal); I12.9 Hypertensive chronic kidney disease with stage 1 through stage 4 chronic kidney disease, or unspecified chronic kidney disease; N18.9 Chronic kidney disease, unspecified
CPT/HCPCS: 82043; 82570